=== PATIENT | female | born 1965 | race Caucasian/White ===

== ENCOUNTER → 2016-11-14 | Day surgery (SDC) | payer BC, OTHER ==
[~2016-11-14] MED LIST: ALLER-TEC10 MG PO; ASPIR 8181 MG PO; FLOMAX 0.4 MG0.4 MG PO; GLUCOPHAGE 500500 MG PO; NEURONTIN 300300 MG PO; OXYCODON-ACETA1 EAC1 PO; PAROXETINE HCL40 MG PO; PRAVASTATIN SOD20 MG PO; PRINIVIL20 MG PO; VISTARIL25 MG PO; ZANAFLEX4 M1 PO; ZANTAC150 MG PO
== END | disposition home or self-care (01) ==
LOC: OR 06:52
PROVIDERS: Internal Medicine Gastroenterology
PROC: 0DJD8ZZ Inspection of Lower Intestinal Tract, Via Natural or Artificial Opening Endoscopic (ICD-10-PCS; principal; 2016-11-14 08:45)
DX: Z12.11 Encounter for screening for malignant neoplasm of colon (principal); K64.1 Second degree hemorrhoids; K62.89 Other specified diseases of anus and rectum; K66.0 Peritoneal adhesions (postprocedural) (postinfection); G47.33 Obstructive sleep apnea (adult) (pediatric); I10 Essential (primary) hypertension; K21.9 Gastro-esophageal reflux disease without esophagitis; G89.29 Other chronic pain; F41.9 Anxiety disorder, unspecified; F32.9 Major depressive disorder, single episode, unspecified; Z82.49 Family history of ischemic heart disease and other diseases of the circulatory system; Z83.3 Family history of diabetes mellitus; Z88.8 Allergy status to other drugs, medicaments and biological substances; Z90.49 Acquired absence of other specified parts of digestive tract; Z90.710 Acquired absence of both cervix and uterus; Z98.890 Other specified postprocedural states; Z99.89 Dependence on other enabling machines and devices
CPT/HCPCS: G0121; 82962; J7030

== ENCOUNTER → 2021-03-15 | Outpatient (CLI) | payer OTHER | LOC: KOH-I 10:39 | DX: M54.2 Cervicalgia (principal) | CPT/HCPCS: 72040 ==

== ENCOUNTER → 2022-01-11 | Outpatient (CLI) | payer OTHER | LOC: ECHO 01-10 10:45 | DX: R06.00 Dyspnea, unspecified (principal) | CPT/HCPCS: ECHO; 93306 ==